=== PATIENT | male | born 1975 | race Caucasian/White ===

== ENCOUNTER 2018-06-15 00:33 | Emergency (ER) | payer MEDICAID ==
[2018-06-15] MEDS: DIAZEPAM 5 MG TAB PO (02:12)
[2018-06-15] MEDS: KETOROLAC 60 MG INJ IM (02:13)
== END 2018-06-15 02:28 | disposition home or self-care (01) ==
LOC: FTE 00:33
DX: M54.12 Radiculopathy, cervical region (principal)
CPT/HCPCS: 96372; 99284-25

== ENCOUNTER 2018-06-17 10:12 | Emergency (ER) | payer MEDICAID | END 2018-06-17 11:37 | disposition home or self-care (01) | LOC: FTE 11:37 | DX: B02.9 Zoster without complications (principal) | CPT/HCPCS: 99283; Z7502 ==